=== PATIENT | female | born 1980 | race Caucasian/White ===

== ENCOUNTER → 2019-07-10 16:45 | Outpatient (CLI) | payer BC, SELFPAY ==
--- NOTE | ~2019-07-10 | XR_ITS ---
EXAMINATION: XR chest 2V 07/10/2019 16:55 INDICATION: Persistent cough PROCEDURE: 2 view chest COMPARISON: No prior studies for comparison. FINDINGS: The lungs are clear. The cardiomediastinal silhouette is within normal limits. There are no pleural effusions. There is no pneumothorax suspected. IMPRESSION: 1: NO ACUTE CARDIOPULMONARY DISEASE. Reviewed, dictated and finalized at location A.
== END ==
PROVIDERS: PCP Family Medicine; Visit Provider Family Medicine
DX: R05 Cough (principal)
CPT/HCPCS: 71046

== ENCOUNTER 2023-02-19 09:07 | Emergency (ER) | payer BC, SELFPAY ==
--- NOTE | 2023-02-19 09:13 | ED.SKABFB ---
HPI - Skin/Abscess/Foreign Bdy General Chief complaint: Unspecified Stated complaint: Swelling on face/neck Time Seen by Provider: 02/19/23 09:13 Source: patient Mode of arrival: ambulatory Limitations: no limitations History of Present Illness HPI narrative: Eloina is a 42-year-old female patient presenting to the clinic today with complaints of swelling of her neck and face x1 day. She reports she developed swelling in front of her left ear last night and some swelling to the right posterior cervical area this morning. These areas are very painful to palpation. She denies any sore throat, dental pain, or ear pain. No known exposure to anyone with COVID, flu, or strep. She denies any fever or chills Related Data Home Medications Medication Instructions Recorded Confirmed norethindrone 1 mg-ethinyl 1 tablet PO DAILY 05/09/19 02/19/23 estradiol 20 mcg (21)-iron 75 mg (7) tablet ([place] Fe 05/19 (28)) Allergies Allergy/AdvReac Type Severity Reaction Status Date / Time No Known Allergies Allergy Verified 02/19/23 09:15 Review of Systems Review of Systems: Pertinent positives per HPI. Patient denies any fever, chills, rash, headache, visual changes, dizziness, cough, runny nose, sore throat, shortness of breath, chest pain, palpitations, nausea, vomiting, diarrhea, constipation, abdominal pain, or any urinary issues. [facility] Family History Family History Father Hypertension Family history of type 2 diabetes mellitus Social History Social History Social History: Smoking status: Never smoker Second hand tobacco smoke exposure: No Alcohol intake: never Substance use: never Substance use type: does not use Lack of Transportation: No Lack of Food: Never True Current Housing: I Have Housing Concerned About Future Housing: No Difficulty Paying Gas/Electric Bills: No Difficulty Paying for Meds: No Currently Unemployed: No Education: Master's Degree or Higher Difficulty w/ Childcare or Family Care: No Living arrangements: with family Occupation/Education: occupation Gender identity (if verbalized by the patient): Female Comments At the time of my signature, I reviewed and agree with the nursing past medical, surgical, social, and family history. There is no relevant family history pertinent to the patient complaint. Exam Narrative: General: Well-developed, well nourished, in no apparent distress Head: Normocephalic, atraumatic Eyes: Pupils equally round and reactive to light bilaterally, EOM intact, sclera and conjunctive clear, no discharge, lids normal Ears: TMs intact and clear, ear canals clear, no drainage, grossly hearing normal. Nose: Nares patent, no discharge, no inflammation, no sinus tenderness. Mouth: Oropharynx without lesions or masses, good dentition, MMM. Neck: Supple, trachea midline, enlargement of right posterior cervical node and left periaurical node, no thyroid masses or goiter palpable. Cardio: Regular rate and rhythm, s1 and s2 normal, no murmur appreciated. Resp: Clear to auscultation bilaterally anteriorly and posteriorly, no rhonchi, rales, wheezing or rubs Integumentary: Narcissa, warm, and dry, intact without lesion, no rashes. Course Course Emergency Course: Portions of this record may have been created with voice recognition software. Level of Care: Express Care Visit Vital Signs Vital signs: Vital signs reviewed MDM - Skin/Abscess/Foreign Bdy MDM Narrative Medical decision making narrative: At the time of visit patient is resting comfortably on the exam table. Patient is having periauricle swelling/tenderness as well as right posterior cervical swelling/tenderness. Will place patient on Augmentin and have her follow-up with her PCP in 7-10 days if symptoms persist or sooner if they worsen. Sup
[2023-02-19 09:14] VITALS: BP 130/96; PULSE 82; RESP 16; TEMP 36.6; O2SAT 100
== END 2023-02-19 09:29 | disposition home or self-care (01) ==
PROVIDERS: Emergency Provider Nurse Practitioner Family; PCP Family Medicine
DX: R59.9 Enlarged lymph nodes, unspecified (principal)
CPT/HCPCS: 99213; G0463

== ENCOUNTER 2024-06-26 15:50 | Outpatient (CLI) | payer BC, SELFPAY | END 2024-06-26 15:51 | disposition home or self-care (01) | LOC: MICIMG 15:50 | PROVIDERS: PCP Nurse Practitioner; Visit Provider Nurse Practitioner | DX: Z12.31 Encounter for screening mammogram for malignant neoplasm of breast (principal); R92.8 Other abnormal and inconclusive findings on diagnostic imaging of breast | CPT/HCPCS: 77063; 77067 ==

== ENCOUNTER 2024-07-16 11:49 | Outpatient (CLI) | payer BC, SELFPAY ==
--- NOTE | ~2024-07-16 | MM_ITS ---
EXAMINATION: MM diagnostic viri RT w sarai HISTORY: Abnormal right breast calcifications. TECHNIQUE: Additional 3-D tomosynthesis images of the right breast were performed and synthetic 2-D i mages were generated. CAD analysis was submitted and interpreted. COMPARISON: 06/26/2024 BREAST PARENCHYMAL COMPOSITION: Dense: The breasts are extremely dense, which lowers the sensitivity of mammography. FINDINGS: There is a cluster of pleomorphic calcifications in the lower outer quadrant of the right b reast, anterior third. There are no suspicious masses or architectural distortion. IMPRESSION: 1. Clustered pleomorphic right breast calcifications, lower outer quadrant, anterior third. 2. Stereotactic right breast biopsy recommended. BI-RADS category 4, suspicious findings. Reviewed, dictated and finalized at location B. IMPRESSION: 1. Clustered pleomorphic right breast calcifications, lower outer quadrant, ant erior third. 2. Stereotactic right breast biopsy recommended. BI-RADS category 4, suspicious findings.
== END 2024-07-16 11:50 | disposition home or self-care (01) ==
LOC: MICIMG 11:50
PROVIDERS: PCP Nurse Practitioner; Visit Provider Nurse Practitioner
DX: R92.1 Mammographic calcification found on diagnostic imaging of breast (principal); R92.2 Inconclusive mammogram
CPT/HCPCS: 77061; 77065; G0279